=== PATIENT | male | born 1940 | race Hispanic/Latino ===

== ENCOUNTER → 2018-12-26 | Outpatient (CLI) | payer MEDICARE ==
[~2018-12-26] MED LIST: ALBU18HF7 IH; APIX5TAB PO; ASCO500T9 PO; ASPI-1005 PO; ATOR20TA65 PO; BENA10TA10 PO; CHOL500051 PO; CLOP75TA14 PO; CYCL5TAB PO; FAMO20TA8 PO; FERR324T4 PO; FLUT1AER IH; GLIP1TAB5 PO; PREG25 PO; TAMS-1 PO
== END | disposition home or self-care (01) ==
LOC: SHCH 07:46
PROVIDERS: ATTEND Internal Medicine Cardiovascular Disease
DX: I71.2 Thoracic aortic aneurysm, without rupture (principal)
CPT/HCPCS: 93978

== ENCOUNTER 2019-05-24 16:21 | Emergency (ER) | payer MEDICARE ==
[2019-05-24 17:46] LABS: BASOPHILS % (AUTO) 0.3 % (0.0-5.0); EOSINOPHILS % (AUTO) 3.8 % (0.0-8.0); HEMATOCRIT 36.4 % (42-54); LYMPHOCYTES % (AUTO) 15.2 % (21.0-51.0); MEAN CORPUSCULAR HEMOGLOBIN 32.2 pg (27.0-33.0); MEAN CORPUSCULAR HGB CONC 34.6 g/dL (32.0-36.0); NEUTROPHILS % (AUTO) 74.7 % (40.0-77.0); PLATELET COUNT (AUTO) 230 K/uL (130-400); RED BLOOD CELL COUNT(AUTO) 3.91 MIL/uL (4.50-6.20); RED CELL DISTRIBUTION WIDTH 13.9 % (11.0-15.5); WHITE BLOOD COUNT (AUTO) 9.3 K/uL (4.8-10.8)
[2019-05-24 17:49] LABS: CREATININE 1.6 mg/dL (0.5-1.5)
== END 2019-05-24 18:43 | disposition home or self-care (01) ==
LOC: EDH 16:21
DX: I25.10 Atherosclerotic heart disease of native coronary artery without angina pectoris (principal); I10 Essential (primary) hypertension; E11.9 Type 2 diabetes mellitus without complications; E78.5 Hyperlipidemia, unspecified; Z85.038 Personal history of other malignant neoplasm of large intestine; Z72.0 Tobacco use; Z98.890 Other specified postprocedural states
CPT/HCPCS: 36415; 80048; 84484; 85025; 93005

== ENCOUNTER → 2019-05-24 | Outpatient (CLI) | payer OTHER ==
[~2019-05-24] MED LIST changes: -BENA10TA10 PO; +BENA10TA12 PO
== END | disposition home or self-care (01) ==
LOC: RAH 12:21
PROVIDERS: ATTEND Internal Medicine Cardiovascular Disease
DX: Z13.6 Encounter for screening for cardiovascular disorders (principal)
CPT/HCPCS: 75571

== ENCOUNTER → 2019-06-19 | Outpatient (CLI) | payer MEDICARE ==
[~2019-06-19] VITALS: Ht 157.5 cm; Wt 89.8 kg
[~2019-06-19] MED LIST changes: +REGADENOSON 0.4 MG/5 ML PF SYG IVP SCH
== END | disposition home or self-care (01) ==
LOC: SHCH 08:37
PROVIDERS: ATTEND Internal Medicine Cardiovascular Disease
DX: I10 Essential (primary) hypertension (principal); I25.10 Atherosclerotic heart disease of native coronary artery without angina pectoris
CPT/HCPCS: 78452; 93017; 96374; A9500 ×2; J2785

== ENCOUNTER 2019-10-26 16:58 | Emergency (ER) | payer MEDICARE ==
[~2019-10-26 16:58] MED LIST changes: -BENA10TA12 PO; +BENA10TA77 PO; -REGADENOSON 0.4 MG/5 ML PF SYG IVP SCH
[2019-10-26] MEDS ORDERED: ACETAMINOPHEN 325 MG TAB ONE (18:02)
[2019-10-26] MEDS ORDERED: KETOROLAC TROMETHAMINE 30MG/ML ONE (19:09)
== END 2019-10-26 19:13 | disposition home or self-care (01) ==
LOC: EDH 16:58
DX: M79.604 Pain in right leg (principal); E11.9 Type 2 diabetes mellitus without complications; I10 Essential (primary) hypertension; E78.5 Hyperlipidemia, unspecified
CPT/HCPCS: 93971; 96372; 99284; J1885

== ENCOUNTER → 2020-04-30 | Outpatient (CLI) | payer MEDICARE ==
[~2020-04-30] MED LIST changes: +ASCO500T20 PO; -ASCO500T9 PO
== END | disposition home or self-care (01) ==
LOC: SHCH 10:20
PROVIDERS: ATTEND Internal Medicine Cardiovascular Disease
DX: I73.9 Peripheral vascular disease, unspecified (principal)
CPT/HCPCS: 93925

== ENCOUNTER 2021-04-11 12:47 | Emergency (ER) | payer MEDICARE ==
[~2021-04-11] VITALS: Ht 162.6 cm; Wt 129.7 kg
[2021-04-11 13:11] VITALS: BP 136/55
[2021-04-11 13:45] LABS: BASOPHILS % (AUTO) 0.5 % (0.0-5.0); EOSINOPHILS % (AUTO) 3.1 % (0.0-8.0); HEMATOCRIT 39.4 % (42-54); LYMPHOCYTES % (AUTO) 15.7 % (21.0-51.0); MEAN CORPUSCULAR HEMOGLOBIN 30.8 pg (27.0-33.0); MEAN CORPUSCULAR HGB CONC 33.2 g/dL (32.0-36.0); MEAN CORPUSCULAR VOLUME 92.5 fL (79-99); MONOCYTES % (AUTO) 7.2 % (3.0-13.0); NEUTROPHILS % (AUTO) 72.7 % (40.0-77.0); PLATELET COUNT (AUTO) 206 K/uL (130-400); RED BLOOD CELL COUNT(AUTO) 4.26 MIL/uL (4.50-6.20); RED CELL DISTRIBUTION WIDTH 13.1 % (11.0-15.5); WHITE BLOOD COUNT (AUTO) 8.5 K/uL (4.8-10.8)
[2021-04-11 15:25] LABS: ALANINE AMINOTRANSFERASE 25 U/L (12-78); ALBUMIN 3.8 g/dL (3.5-5.0); ASPARTATE AMINOTRANSFERASE 23 U/L (10-37); BILIRUBIN,TOTAL 0.6 mg/dL (0.2-1.0); CARBON DIOXIDE 29 mmol/L (21-32); CHLORIDE 103 mmol/L (101-111); CREATINE KINASE, TOTAL 35 U/L (21-232); CREATININE 1.7 mg/dL (0.5-1.5); GLOMERULAR FILTR. RATE CALC 42 mL/min (>60); GLUCOSE,RANDOM 156 mg/dL (70-105); MYOGLOBIN 57 ng/mL (10-92); POTASSIUM 5.8 mmol/L (3.5-5.1); SODIUM SERUM 138 mmol/L (136-145); TOTAL PROTEIN, SERUM 6.9 g/dL (6.0-8.3); TROPONIN I < 0.04 ng/mL (0.00-0.06); UREA NITROGEN, BLOOD 17 mg/dL (7-18)
[2021-04-11] MEDS ORDERED: CEFTRIAXONE 1G VIAL IM ONE (16:30)
[2021-04-11] MEDS ORDERED: CLIN300C10 PO (16:33)
[2021-04-11] MEDS ORDERED: NAPR-1180 PO (16:33)
[2021-04-11] MEDS ORDERED: CEFTRIAXONE 1G VIAL IVP ONE (17:00)
[2021-04-11 17:18] VITALS: BP 135/74
== END 2021-04-11 17:18 | disposition home or self-care (01) ==
LOC: EDH 12:47
DX: M43.6 Torticollis (principal); H70.90 Unspecified mastoiditis, unspecified ear; R42 Dizziness and giddiness; E11.9 Type 2 diabetes mellitus without complications; E78.00 Pure hypercholesterolemia, unspecified; I10 Essential (primary) hypertension; Z79.01 Long term (current) use of anticoagulants; Z79.1 Long term (current) use of non-steroidal anti-inflammatories (NSAID); Z79.51 Long term (current) use of inhaled steroids; Z79.82 Long term (current) use of aspirin; Z79.84 Long term (current) use of oral hypoglycemic drugs; Z79.899 Other long term (current) drug therapy; Z86.73 Personal history of transient ischemic attack (TIA), and cerebral infarction without residual deficits
CPT/HCPCS: 36415; 70450; 80053; 82550; 83874; 84484; 85025; 85651; 93005; 99285; J0696

== ENCOUNTER 2023-05-25 20:28 | Emergency (ER) | payer MEDICARE ==
[~2023-05-25 20:28] MED LIST changes: -ALBU18HF7 IH; -APIX5TAB PO; -ASCO500T20 PO; -ASPI-1005 PO; -ATOR20TA65 PO; +ATOR40TA71 PO; -CHOL500051 PO; -CLOP75TA14 PO; -CYCL5TAB PO; -FAMO20TA8 PO; -FERR324T4 PO; -FLUT1AER IH; +FOLI1TAB85 PO; +GLIM4TAB36 PO; -GLIP1TAB5 PO; +ICOS1CAP PO; -PREG25 PO; +RIVA2.5T PO; +SITA50TA PO
== END 2023-05-25 21:43 | disposition left against medical advice (07) ==
LOC: EDH 20:28
DX: T78.40XA Allergy, unspecified, initial encounter (principal); Z53.21 Procedure and treatment not carried out due to patient leaving prior to being seen by health care provider

== ENCOUNTER → 2024-01-03 | Outpatient (CLI) | payer MEDICARE | END | disposition home or self-care (01) | LOC: SHCH 08:17 | PROVIDERS: ATTEND Internal Medicine Cardiovascular Disease | DX: I70.213 Atherosclerosis of native arteries of extremities with intermittent claudication, bilateral legs (principal); R22.41 Localized swelling, mass and lump, right lower limb; I10 Essential (primary) hypertension; E78.5 Hyperlipidemia, unspecified; I25.10 Atherosclerotic heart disease of native coronary artery without angina pectoris; Z79.899 Other long term (current) drug therapy; Z86.73 Personal history of transient ischemic attack (TIA), and cerebral infarction without residual deficits | CPT/HCPCS: 93970 ==

== ENCOUNTER → 2024-02-17 | Outpatient (CLI) | payer MEDICARE ==
[2024-02-17 15:41] LABS: ALBUMIN 3.9 g/dL (3.5-5.0); BILIRUBIN,TOTAL 0.6 mg/dL (0.2-1.0); CREATININE 2.2 mg/dL (0.5-1.3); MAGNESIUM 1.6 mg/dL (1.80-2.40); POTASSIUM 4.2 mmol/L (3.5-5.1); TOTAL PROTEIN, SERUM 7.1 g/dL (6.0-8.3)
== END | disposition home or self-care (01) ==
LOC: LAB 13:10
PROVIDERS: ATTEND Internal Medicine Cardiovascular Disease
DX: I10 Essential (primary) hypertension (principal)
CPT/HCPCS: 36415; 80053; 83735

== ENCOUNTER → 2024-03-23 | Outpatient (CLI) | payer MEDICARE | END | disposition home or self-care (01) | LOC: SHCH 13:06 | PROVIDERS: ATTEND Internal Medicine Cardiovascular Disease | DX: I08.1 Rheumatic disorders of both mitral and tricuspid valves (principal); R06.9 Unspecified abnormalities of breathing | CPT/HCPCS: 93306 ==

== ENCOUNTER 2024-04-06 05:58 | Day surgery (SDC) | payer MEDICARE ==
[2024-04-03 12:20] LABS: BASOPHILS # (AUTO) 0.03 K/uL (0.00-0.20); BASOPHILS % (AUTO) 0.4 % (0.0-5.0); EOSINOPHILS # (AUTO) 0.21 K/uL (0.00-0.70); EOSINOPHILS % (AUTO) 2.5 % (0.0-8.0); HEMATOCRIT 37.5 % (42-54); IMMATURE GRANULOCYTE ABSOLUTE 0.06 K/uL (0-1); LYMPHOCYTES # (AUTO) 1.2 K/uL (1.0-4.8); LYMPHOCYTES % (AUTO) 14.3 % (21.0-51.0); MEAN CORPUSCULAR HEMOGLOBIN 31.6 pg (27.0-33.0); MEAN CORPUSCULAR HGB CONC 33.9 g/dL (32.0-36.0); MEAN CORPUSCULAR VOLUME 93.3 fL (79-99); MONOCYTES # (AUTO) 0.6 K/uL (0.1-1.0); MONOCYTES % (AUTO) 7.5 % (3.0-13.0); NEUTROPHILS # (AUTO) 6.3 K/uL (1.8-7.7); NEUTROPHILS % (AUTO) 74.6 % (40.0-77.0); PLATELET COUNT (AUTO) 171 K/uL (130-400); RED BLOOD CELL COUNT(AUTO) 4.02 MIL/uL (4.50-6.20); RED CELL DISTRIBUTION WIDTH 12.9 % (11.0-15.5); WHITE BLOOD COUNT (AUTO) 8.4 K/uL (4.8-10.8)
[2024-04-03 12:31] LABS: CREATININE 1.8 mg/dL (0.5-1.3); POTASSIUM 5.6 mmol/L (3.5-5.1)
[2024-04-03 12:33] LABS: INR 1.17 (0.85-1.15); PROTHROMBIN TIME 12.5 SEC (9.6-11.6)
[2024-04-03 12:34] LABS: PARTIAL THROMBOPLASTIN TIME 32.8 SEC (26.3-35.5)
[2024-04-03 12:40] VITALS: BP 163/78; PULSE 77; RESP 19
[~2024-04-06] VITALS: Ht 160 cm; Wt 93.2 kg
[2024-04-06] VITALS (14 sets, daily range): BP systolic 102–184; BP diastolic 52–80; PULSE 60–77; RESP 16–18
[2024-04-06 06:36] LABS: CREATININE 1.7 mg/dL (0.5-1.3); POTASSIUM 5.7 mmol/L (3.5-5.1)
[2024-04-06] MEDS: 0.9%NACL 1000ML 1,000 ML IV ONE (07:07)
[2024-04-06] MEDS ORDERED: LIDOCAINE HCL 400MG/20ML VIAL ONE (07:14)
[2024-04-06] MEDS ORDERED: IODIXANOL 320 MG/ML 100 ML VIAL ONE (07:15)
[2024-04-06] MEDS ORDERED: HEPARIN 10,000 UNIT/10ML (1,000 UNIT/ML) VIAL ONE (07:15)
[2024-04-06] MEDS ORDERED: NITROGLYCERIN 50MG VIAL ONE (07:15)
[2024-04-06] MEDS ORDERED: FENTANYL CITRATE PF 50 MCG/1 ML 2ML VIAL ONE (07:30)
[2024-04-06] MEDS ORDERED: MIDAZOLAM HCL 1 MG/ML 2ML VIAL ONE (07:30)
[2024-04-06] MEDS ORDERED: CLOPIDOGREL 300MG TAB ONE (09:12)
[2024-04-06] MEDS ORDERED: HYDRALAZINE 20MG/ML VIAL IV PRN (09:30)
[2024-04-06] MEDS ORDERED: 0.9%NACL 1000ML 1,000 ML IV SCH (09:30)
[2024-04-06] MEDS ORDERED: GLUCAGON 1MG KIT 1 MG ML IM PRN (09:30)
[2024-04-06] MEDS ORDERED: DEXTROSE 50%-WATER 50 ML DISP.SYRIN IV PRN (09:30)
[2024-04-06] MEDS ORDERED: METOPROLOL TARTRATE 1 MG/ML 5ML VIAL IV PRN (09:30)
[2024-04-06] MEDS ORDERED: ATROPINE 1MG SYG IVP ONE (11:00)
[2024-04-06] MEDS ORDERED: INSULIN HUMULIN R 100 UNIT/ML 3ML SQ SCH (11:30)
[2024-04-06] MEDS: NITROGLYCERIN 0.4 MG SL TAB SL PRN (11:52)
[2024-04-07] MEDS ORDERED: ASPIRIN 81MG CHEW TAB PO SCH (09:00)
== END 2024-04-06 14:00 | disposition short-term general hospital (02) ==
LOC: DAH 05:58
PROVIDERS: ATTEND Internal Medicine Cardiovascular Disease
DX: E11.51 Type 2 diabetes mellitus with diabetic peripheral angiopathy without gangrene (principal); I70.203 Unspecified atherosclerosis of native arteries of extremities, bilateral legs; Z79.01 Long term (current) use of anticoagulants; I10 Essential (primary) hypertension; E78.5 Hyperlipidemia, unspecified; I25.10 Atherosclerotic heart disease of native coronary artery without angina pectoris; Z87.2 Personal history of diseases of the skin and subcutaneous tissue; Z86.73 Personal history of transient ischemic attack (TIA), and cerebral infarction without residual deficits; Z79.4 Long term (current) use of insulin; Z79.899 Other long term (current) drug therapy
CPT/HCPCS: 80048 ×2; 85025; 85610; 85730; 36415 ×2; 93005; 75625; 75716; 75774; 82948 ×2; C9764; C1887; C1725; C1769 ×4; C1894 ×2; C1893; C2623; J3010; J3490 ×2; J7030; J1644 ×2; J2250; Q9967; A4215; A4222; A4221; A4663; A4216; A4606; A4223 ×3; 99156; 99157; J0461

== ENCOUNTER → 2024-04-10 | Outpatient (CLI) | payer MEDICARE | END | disposition home or self-care (01) | LOC: SHCH 14:58 | PROVIDERS: ATTEND Internal Medicine Cardiovascular Disease | DX: I87.2 Venous insufficiency (chronic) (peripheral) (principal); I87.1 Compression of vein | CPT/HCPCS: 93970 ==

== ENCOUNTER → 2024-04-16 | Outpatient (CLI) | payer MEDICARE ==
[2024-04-16 12:15] LABS: CREATININE 2.4 mg/dL (0.5-1.3); POTASSIUM 4.9 mmol/L (3.5-5.1)
== END | disposition home or self-care (01) ==
LOC: LAB 09:32
PROVIDERS: ATTEND Internal Medicine Cardiovascular Disease
DX: I10 Essential (primary) hypertension (principal)
CPT/HCPCS: 36415; 80048

== ENCOUNTER → 2024-05-01 | Outpatient (CLI) | payer MEDICARE ==
[2024-05-01 12:19] LABS: CREATININE 2.8 mg/dL (0.5-1.3); POTASSIUM 5.4 mmol/L (3.5-5.1)
== END | disposition home or self-care (01) ==
LOC: LAB 10:38
PROVIDERS: ATTEND Internal Medicine Cardiovascular Disease
DX: I10 Essential (primary) hypertension (principal)
CPT/HCPCS: 36415; 80048

== ENCOUNTER → 2024-08-21 | Outpatient (CLI) | payer MEDICARE ==
--- NOTE | 2024-08-22 07:06 | HMCSR ---
APPROVED REPORT Laterality: Bilateral Surgery/Intervention Angioplasty : Date : 2018 Site : RCFA/RATA/R PER PTCA : Date : 03/2024 Site : R POP VELOCITY AND DOPPLER WAVEFORM ANALYSIS MEDICAL OFFICE TECHNOLOGIST (R) 215.3cm/sec, Biphasic, MEDICAL OFFICE TECHNOLOGIST (L) 96.6cm/sec, Biphasic, Prof Fem Art. (R) 145.9cm/sec, Biphasic, Prof Fem Art. (L) 68.3cm/sec, Biphasic, Fem Art Prox. (R) 181.8cm/sec, Biphasic, Fem Art Prox. (L) 97.2cm/sec, Biphasic, Fem Art Mid. (R) 76.7cm/sec, Biphasic, Fem Art Mid. (L) 98.4cm/sec, Biphasic, Fem Art Dist (R) 57.9cm/sec, Biphasic, Fem Art Dist. (L) 31.3cm/sec, Monophasic,pre-occlusive Pop Art(AK) (R) 248.7cm/sec, Biphasic, Pop Art (AK) (L) 26.6cm/sec, Monophasic,pre-occlusive Pop Art (Fossa)(R) 228.2cm/sec, Biphasic, Pop Art (Fossa) (L) 25.5cm/sec, Monophasic,pre-occlusi ve Pop Art(BK) (R) 62.0cm/sec, Biphasic, Pop Art (BK) (L) 20.8cm/sec, Monophasic,pre-occlusive Oniel ateral nearby GOLF CADDY Prox. (R) 15.5cm/sec, Trickle Monophasic, GOLF CADDY Prox. (L) cm/sec, Occluded, GOLF CADDY Mid. (R) 31.8cm/sec, Trickle Monophasic, GOLF CADDY Mid. (L) cm/sec, Occluded, GOLF CADDY Dist. (R) cm/sec, Occluded, GOLF CADDY Dist. (L) cm/sec, Occluded, Per Art Dist. (R) 29.4cm/sec, Trickle Monophasic, Per Art Dist. (L) cm/sec, Occluded, JENNIFER Prox. (R) 76.3cm/sec, Biphasic, JENNIFER Prox. (L) 57.5cm/sec, Monophasic, JENNIFER Mid. (R) 68.2cm/sec, Biphasic JENNIFER Mid. (L) 63.8cm/sec, Monophasic, JENNIFER Dist. (R) 58.3cm/sec, Biphasic, JENNIFER Dist. (L) 53.5cm/sec, Monophasic, Technologist Impression Diffuse atherosclerosis throughout the bilateral lower extremities. The right posterior tibial artery appears occluded distally. The left popliteal artery appears occluded with collateralized flow noted. The left posterior tibial artery and left peroneal artery appears occluded. Conclusion The right posterior tibial artery appears occluded distally. The left popliteal artery appears occluded with collateralized flow noted. The left posterior tibial artery and left peroneal artery appears occluded. Conclusion The right posterior tibial artery appears occluded distally. The left popliteal artery appears occluded with collateralized flow noted. The left posterior tibial artery and left peroneal artery appears occluded.
== END | disposition home or self-care (01) ==
LOC: SHCH 10:10
PROVIDERS: ATTEND Internal Medicine Cardiovascular Disease
DX: I70.293 Other atherosclerosis of native arteries of extremities, bilateral legs (principal)
CPT/HCPCS: 93925

== ENCOUNTER 2024-12-05 21:19 | Emergency (ER) | payer MEDICARE ==
[~2024-12-05] VITALS: Ht 167.6 cm; Wt 86.2 kg
--- NOTE | 2024-12-05 21:45 | ERN ---
ED Note History of Present Illness Stated Complaint: ABDOMINAL PAIN Chief Complaint: Abdominal Pain Time Seen by MD: 21:40 Time Seen by Midlevel: 21:43 Dictation: Mr. Casey is an 84-year-old gentleman with history of colon cancer/resection, COPD, hypertension, CVA/right sided residual weakness, BPH, and CKD who presented to the emergency department this evening for evaluation of abdominal pain. He reports to three days of fatigue, general weakness, left-sided abdominal pain, cough, and shortness of breath. He states he continues to smoke one cigarette daily; former heavy smoker. He states he went to go see Dr. Santacruz today and was told to come to the hospital in the evening when it was in his busy. He denies having fever, chills, sore throat, congestion, chest pain, palpitations, edema, nausea, vomiting, hematemesis, constipation, diarrhea, melena, hematochezia, headache, or dizziness. Oncologist: Dr. Javier Santacruz Manager Of Broadcast Content: Dr. Magen Arguello Allergies: Coded Allergies: No Known Allergies (Unverified Allergy, Unknown, 10/26/19) No Known Drug Allergies (Unverified Allergy, Unknown, 10/26/19) Home Meds Active Scripts Polyethylene Glycol 3350 (Miralax) 17 Gram Powd.pack, 17 GM PO DAILY for 7 Days, #7 PACK 0 Refills Prov:ARELIS CAMPO NP 12/06/24 Ondansetron (Ondansetron Odt) 4 Mg Tab.rapdis, 4 MG PO Q6HPRN PRN for nausea, #15 TAB 0 Refills Prov:ARELIS CAMPO NP 12/06/24 Reported Medications Benazepril HCl (Benazepril HCl) 10 Mg Tablet, 10 MG PO BID, TAB 01/28/23 Icosapent Ethyl (Vascepa) 1 Gram Capsule, 2 GM PO BID, CAP 01/28/23 Sitagliptin Phosphate (Januvia) 50 Mg Tablet, 50 MG PO DAILY, TAB 01/28/23 Vit B Cmplx 3/FA/Vit C/Biotin ([place] [facility] Tablet) 1 Each Tablet, 1 EACH PO JAMES LY, TAB 01/28/23 Tamsulosin HCl (Flomax) 0.4 Mg Cap.er.24h, 0.4 MG PO DAILY, CAPSULE. 01/28/23 Rivaroxaban (Xarelto) 2.5 Mg Tablet, 2.5 MG PO BID, TAB 01/28/23 Glimepiride (Glimepiride) 4 Mg Tablet, 4 MG PO BID PRN for BLOOD GLUCOSE >150, TAB 01/28/23 Atorvastatin Calcium (Atorvastatin Calcium) 40 Mg Tablet, 40 MG PO HS, TAB 01/28/23 Past Medical History Past Medical History: COPD, CVA (with right sided residual weakness), Diabetes- Type II, Hypertension Additional Past Medical Hx: COLON CA, CKD Surgical History: Other Surgical History Other: HERNIA REPAIR, bowel resection Social History: Smokers (former), Negative, Lives with family RN Note Reviewed/Agreed w/PFSH: Yes Review of System Dictation REVIEW OF SYSTEMS: CONSTITUTIONAL: Patient denies fevers, chills, sweats and weight changes. Reports fatigue, and general weakness EYES: Patient denies any visual symptoms. EARS, NOSE, AND THROAT: No difficulties with hearing. No symptoms of rhinitis or sore throat. CARDIOVASCULAR: Patient denies chest pains, palpitations, orthopnea and paroxysmal nocturnal dyspnea. RESPIRATORY: Reports shortness of breath with activity and nonproductive cough. States he continues to smoke one cigarette per day. GI: No nausea, vomiting, diarrhea, constipation, hematochezia or melena. Reports abdominal distention and abdominal pain (worse on left) : No urinary hesitancy or dribbling. No nocturia or urinary frequency. No abnormal urethral discharge. MUSCULOSKELETAL: No myalgias or arthralgias. NEUROLOGIC: No chronic headaches, no seizures. Patient denies numbness, tingling or weakness. History previous stroke with right-sided residual weakness. PSYCHIATRIC: Patient denies problems with mood disturbance. No problems with anxiety. ENDOCRINE: No excessive urination or excessive thirst. DERMATOLOGIC: Patient denies any rashes or skin changes. Initial Vital Sign VS Vital Signs Date Time Temp Pulse Resp B/P (MAP) Pulse Ox O2 Delivery O2 Flow Rate FiO2 12/05/24 21:23 97.7 60 20 164/66 97 Room Air 0 Physical Exam Dictation Vital signs: Reviewed. Afebrile Constitutional: No acute distress. Non-toxic appearing. Head/Face: Normocephalic, atraumatic. Eyes: Periorbital areas with no swelling, redness, or edema. Lids and lashes are normal. Conjunctival injection is absent. Sclera anicteric. Pupils equal, round, reactive to light. ENT: Pinnas intact and no signs of trauma or erythema. Ear canals clear and no discharge. TMs no erythema. No nasal discharge or bleeding noted. Oropharynx with no exudate, redness, swelling, masses, exudates, or evidence of obstruction. Uvula midline. Mucous membranes moist. Neck: Trachea midline, no masses palpated, and no cervical lymphadenopathy. No swelling. Supple, full range of motion. Chest/Axilla: No tenderness, no crepitus, no paradoxical movement, no retractions. Cardiovascular: Regular rate, regular rhythm, no murmur, no gallops. Symmetric pulses. No peripheral edema. Respiratory: Tachypneic; RR 22. Lung sounds diminished with expiratory wheezes. Room air SpO2 92% Gastrointestinal: Inspection obese/soft/distended. Bowel sounds are normal. No mass or organomegaly . There is tenderness diffusely worse on left No rebound. No rigidity. No voluntary or involuntary guarding. No Haile's sign. Neurological: Normal speech, gross motor function intact, gross sensory function intact. No focal weakness/Paresthesia. Musculoskeletal/Extremities: All extremities have full range of motion, no pain or tenderness on palpation. Symmetric pulses. Integumentary: Intact. Skin is normal color, warm and dry. Cap refill less than 3 seconds. Results (Laboratory/Radiology) Laboratory/Radiology Laboratory Tests Test 12/05/24 21:59 12/06/24 00:42 White Blood Count 9.2 K/uL (4.8-10.8) Red Blood Count 3.92 MIL/uL (4.50-6.20) L Hemoglobin 12.2 g/dL (14.0-18.0) L Hematocrit 37.4 % (42-54) L Mean Corpuscular Volume 95.4 fL (79-99) Mean Corpuscular Hemoglobin 31.1 pg (27.0-33.0) Mean Corpuscular Hemoglobin Concent 32.6 g/dL (32.0-36.0) Red Cell Distribution Width 13.2 % (11.0-15.5) Platelet Count 202 K/uL (130-400) Mean Platelet Volume 9.3 fL (7.5-10.5) Immature Granulocyte % (Auto) 0.7 % (0-1) Neutrophils (%) (Auto) 67.1 % (40.0-77.0) Lymphocytes (%) (Auto) 18.3 % (21.0-51.0) L Monocytes (%) (Auto) 8.5 % (3.0-13.0) Eosinophils (%) (Auto) 5.1 % (0.0-8.0) Basophils (%) (Auto) 0.3 % (0.0-5.0) Neutrophils # (Auto) 6.2 K/uL (1.8-7.7) Lymphocytes # (Auto) 1.7 K/uL (1.0-4.8) Monocytes # (Auto) 0.8 K/uL (0.1-1.0) Eosinophils # (Auto) 0.47 K/uL (0.00-0.70) Basophils # (Auto) 0.03 K/uL (0.00-0.20) Absolute Immature Granulocyte (auto 0.06 K/uL (0-1) Nucleated Red Blood Cells 0.0 % (0.0-0.19) Sodium Level 131 mmol/L (136-145) L Potassium Level 5.6 mmol/L (3.5-5.1) H Chloride Level 100 mmol/L (101-111) L Carbon Dioxide Level 27 mmol/L (21-32) Blood Urea Nitrogen 27 mg/dL (7-18) H Creatinine 1.5 mg/dL (0.5-1.3) H Glomerular Filtration Rate Calc 46 mL/min (>90) Random Glucose 112 mg/dL (70-105) H Total Calcium 9.2 mg/dL (8.5-10.1) Total Bilirubin 0.4 mg/dL (0.2-1.0) Direct Bilirubin 0.1 mg/dL (0.0-0.3) Aspartate Amino Transf (AST/SGOT) 19 U/L (10-37) Alanine Aminotransferase (ALT/SGPT) 24 U/L (12-78) Alkaline Phosphatase 79 U/L (50-136) Troponin I High Sensitivity 9 ng/L (4-75) Total Protein 6.7 g/dL (6.0-8.3) Albumin 3.7 g/dL (3.5-5.0) Urine Color LIGHT-YELLOW (YELLOW) Urine Appearance CLEAR (CLEAR) Urine pH 5.0 (5.0-8.0) Urine Specific [place] 1.012 (1.001-1.031) Urine Protein NEGATIVE mg/dL (NEGATIVE) Urine Glucose (UA) NEGATIVE mg/dL (NEGATIVE) Urine Ketones NEGATIVE mg/dL (NEGATIVE) Urine Occult Blood NEGATIVE (NEGATIVE) Urine Nitrate NEGATIVE (NEGATIVE) Urine Bilirubin NEGATIVE mg/dL (NEGATIVE) Urine Urobilinogen 0.2 mg/dL (0.2-1.0) Urine Leukocyte Esterase NEGATIVE Lulu/uL Labs Reviewed?: Yes EKG Comment: EKG Interpretation: Time Reviewed: 2201 Ventricular rate: 59 bpm MN Interval: 211 ms QRS duration: 136 ms Clinical impression: Sinus rhythm with right bundle-branch block EKG Reviewed and interpreted by Dr. Mary Gloria CT Scan Comment: PATIENT: DEBBIE CASEY MR#: [id number] : 1940 SEX: M AGE: 84 LOCATION: [facility] ORDER 45 STATUS: [facility] REPORT#: [id number] SERVICE 40 REASON: abdominal pain, hx ORDERING PHYSICIAN: ARELIS CAMPO NP PROCEDURE: ABD PEL WO - CT ABDOMEN/PELVIS W/O CONTRAST CT ABDOMEN/PELVIS W/O CONTRAST HISTORY: Abdominal pain COMPARISON: None TECHNIQUE: Multiple sequential axial images of the abdomen and pelvis were obtained from the dome of the diaphragm through symphysis pubis. Patient was not given contrast through intravenous route. Oral contrast was not given. FINDINGS: No pleural effusion is seen bilaterally. There is no evidence of parenchymal disease or pulmonary nodule of the visualized lower lungs. Degenerative changes of the thoracolumbar spine are present. The heart is not enlarged. Liver measures 14.4 cm. There is liver parenchymal disease. Bilateral renal cortical scarring is seen. No bowel obstruction is seen. There is spondylosis. The liver, spleen, adrenal glands and pancreas are unremarkable. There is no evidence of hydronephrosis bilaterally. No evidence of renal stone is seen. Fecal material is seen in the colon. There are normal size retroperitoneal and mesenteric lymph nodes. No ascites is seen. Atherosclerotic changes are present. There are small bilateral inguinal hernias with fat content. Pelvic sidewalls are symmetric bilaterally. Bladder is well distended without wall thickening. IMPRESSION: 1. No acute findings. CT was performed with one or more following dose reduction techniques: automated exposure control, adjustment of the mA and kv according to patient's size, or use of a iterative reconstruction technique. DICTATED BY: ARMINDA SHAH MD DATE: 12/05/242233 ELECTRONICALLY SIGNED BY: ARMINDA SHAH MD DATE: 12/05/242240 ED Course ED Course Orders Procedure Category Date Status Time Cbc With Differential LAB 12/05/24 Complete 21:41 Basic Metabolic Panel LAB 12/05/24 Complete 21:41 Hepatic Function Panel LAB 12/05/24 Complete 21:41 Urinalysis Profile LAB 12/05/24 Complete 21:41 Troponin I High LAB 12/05/24 Complete Sensitivity 21:41 12 Lead Ekg Tracing- EKG 12/05/24 Complete Technical 21:41 Chest 1vw RAD 12/05/24 Taken 21:41 Ct Abdomen/Pelvis W/O CT 12/05/24 Resulted Contrast 21:41 Influenza Type A & B, LAB 12/05/24 In Process Rapid 22:52 Covid Rna Naat LAB 12/05/24 In Process 22:52 0.9% Nacl 500ml PHA 12/05/24 Complete Iv.Soln (Ns 500ml 23:00 Sodium Polystyr Sulf PHA 12/06/24 Complete 15gm (Kayexalate 15 00:30 Current Medications Medications (Trade) Dose Ordered Sig/Esthela Route PRN Reason Start Time Stop Time Status Last Admin Dose Admin Sodium Polystyrene Sulfonate (kayEXALate 15 GM/60 ML) 15 gm ONCE ONCE PO 12/06/24 00:30 12/06/24 00:31 DC 12/06/24 01:23 Sodium Chloride 500 ml @ 0 mls/hr ONCE ONCE IV 12/05/24 23:00 12/05/24 23:01 DC 12/06/24 01:28 Vital Signs Date Time Temp Pulse Resp B/P (MAP) Pulse Ox O2 Delivery O2 Flow Rate FiO2 12/05/24 21:23 97.7 60 20 164/66 97 Room Air 0 Uneventful ED course. Vital signs stable; afebrile and normotensive with room air SpO2 97%, noncontrast CT scan of the abdomen and pelvis unremarkable; no acute findings. Laboratory findings as noted below. H and H are 12.2/37.4, Na/Cl 131/100, BUN/CR /1.5, glucose 112, and K5.6. Troponin is negative. Influenza a/B and COVID negative. While in the emergency department he received Kayexalate dose. ED nursing staff and the place IV for NS bolus. Patient had an elevated blood pressure reading and took his dose of hs antihypertensive per home supply. Findings were discussed with patient and son and all questions were answered. Patient is anxious for discharge to home. Family states they will follow up with Dr. Madison office and receive fluids there if needed. . Medical Decision Making MDM MDM: Differential diagnosis: Diverticulitis, bowel obstruction, constipation, viral illness Rationale: Tests considered and ordered secondary to shared decision making include: Lab, CT from a EKG Previous outside records reviewed: Old ER visits. Risk of complication and/or morbidity or mortality of patient management: None Medications-Per medication reconciliation Need for hospitalization: Patient does not meet criteria for hospitalization. Need for emergency major/minor surgery: No There are no social concerns with this patient. Prescription drug management: Zofran, MiraLax Prescriptions will include symptomatic care Patient's prior external medical records from other ER visits were reviewed by me as indicated. Prior testing and results from previous visits were reviewed. Prior tests were taken into account with medical decision making and resource utilization, independent historian/historians were used to obtain complete medical history. I independently interpreted the test that were performed, results were reviewed by me and considered findings on radiology if ordered. Medical management and examination interpretation discussions were had by me with other qualified healthcare professionals as indicated for the patient's care. DX & DISP Disposition: Discharge Departure Impression: Primary Impression: Abdominal pain Additional Impressions: Constipation, Hyperkalemia, Hx of chronic kidney disease, Hypertension, Dehydration, mild Condition: Stable Scripts Polyethylene Glycol 3350 (Miralax) 17 Gram Powd.pack 17 GM PO DAILY for 7 Days, #7 PACK 0 Refills Prov: ARELIS CAMPO POLITICAL CONSULTANT 12/06/24 Ondansetron (Ondansetron Odt) 4 Mg Tab.rapdis 4 MG PO Q6HPRN PRN for nausea, #15 TAB 0 Refills Prov: ARELIS CAMPO POLITICAL CONSULTANT 12/06/24 Additional Instructions: Increase fluid intake. Increase fiber in diet. Take MiraLax daily with full glass of water. May take Zofran ODT every 6 hours as needed for nausea. Keep a log of your blood pressure readings. Continue all home medications. Follow up with your PCP and/or Dr. Santacruz later this week Referrals: JAVIER SANTACRUZ MD (PCP) ARELIS CAMPO NP Dec 05, 2024 21:45
--- NOTE | 2024-12-05 22:06 | EKG ---
[facility] Test Date: 2024-12-05 Test Time: 22:02:46 Pat Name: DEBBIE CASEY Department: ED Room: Gender: Diesel Engine Specialist: [facility] : 1940 Requested By: ARELIS CAMPO Order Number: [id number] Reading MD: Christiano Rucker Measurements Intervals [place] Rate: 59 P: -25 IA: 211 QRS: -85 QRSD: 136 T: 65 QT: 417 QTc: 415 Interpretive Statements Sinus rhythm RBBB and LAFB Compared to ECG 04/03/2024 12:06:19 First degree AV block no longer present Electronically Signed On 12-06-2024 10:31:06 CDT by Christiano Rucker Please click the below link to view image of tracing.
[2024-12-05 22:08] LABS: BASOPHILS # (AUTO) 0.03 K/uL (0.00-0.20); BASOPHILS % (AUTO) 0.3 % (0.0-5.0); EOSINOPHILS # (AUTO) 0.47 K/uL (0.00-0.70); EOSINOPHILS % (AUTO) 5.1 % (0.0-8.0); HEMATOCRIT 37.4 % (42-54); IMMATURE GRANULOCYTE ABSOLUTE 0.06 K/uL (0-1); LYMPHOCYTES # (AUTO) 1.7 K/uL (1.0-4.8); LYMPHOCYTES % (AUTO) 18.3 % (21.0-51.0); MEAN CORPUSCULAR HEMOGLOBIN 31.1 pg (27.0-33.0); MEAN CORPUSCULAR HGB CONC 32.6 g/dL (32.0-36.0); MEAN CORPUSCULAR VOLUME 95.4 fL (79-99); MONOCYTES # (AUTO) 0.8 K/uL (0.1-1.0); MONOCYTES % (AUTO) 8.5 % (3.0-13.0); NEUTROPHILS # (AUTO) 6.2 K/uL (1.8-7.7); NEUTROPHILS % (AUTO) 67.1 % (40.0-77.0); PLATELET COUNT (AUTO) 202 K/uL (130-400); RED BLOOD CELL COUNT(AUTO) 3.92 MIL/uL (4.50-6.20); RED CELL DISTRIBUTION WIDTH 13.2 % (11.0-15.5); WHITE BLOOD COUNT (AUTO) 9.2 K/uL (4.8-10.8)
[2024-12-05 22:21] LABS: CREATININE 1.5 mg/dL (0.5-1.3); POTASSIUM 5.6 mmol/L (3.5-5.1)
[2024-12-05 22:28] LABS: ALBUMIN 3.7 g/dL (3.5-5.0); BILIRUBIN,DIRECT 0.1 mg/dL (0.0-0.3); BILIRUBIN,TOTAL 0.4 mg/dL (0.2-1.0); TOTAL PROTEIN, SERUM 6.7 g/dL (6.0-8.3)
--- NOTE | 2024-12-05 22:41 | HMCIMG ---
CT ABDOMEN/PELVIS W/O CONTRAST HISTORY: Abdominal pain COMPARISON: None TECHNIQUE: Multiple sequential axial images of the abdomen and pelvis were obtained from the dome of the diaphragm through symphysis pubis. Patient was not given contrast through intravenous route. Oral contrast was not given. FINDINGS: No pleural effusion is seen bilaterally. There is no evidence of parenchymal disease or pulmonary nodule of the visualized lower lungs. Degenerative changes of the thoracolumbar spine are present. The heart is not enlarged. Liver measures 14.4 cm. There is liver parenchymal disease. Bilateral renal cortical scarring is seen. No bowel obstruction is seen. There is spondylosis. The liver, spleen, adrenal glands and pancreas are unremarkable. There is no evidence of hydronephrosis bilaterally. No evidence of renal stone is seen. Fecal material is seen in the colon. There are normal size retroperitoneal and mesenteric lymph nodes. No ascites is seen. Atherosclerotic changes are present. There are small bilateral inguinal hernias with fat content. Pelvic sidewalls are symmetric bilaterally. Bladder is well distended without wall thickening. IMPRESSION: 1. No acute findings. CT was performed with one or more following dose reduction techniques: automated exposure control, adjustment of the mA and kv according to patient's size, or use of a iterative reconstruction technique.
[2024-12-06] MEDS ORDERED: ONDA-243 PO (00:24)
[2024-12-06] MEDS ORDERED: POLY17PO4 PO (00:24)
[2024-12-06 00:56] LABS: APPEARANCE,URINE CLEAR (CLEAR); BILIRUBIN,URINE NEGATIVE (NEGATIVE); COLOR,URINE LIGHT-YELLOW (YELLOW); GLUCOSE, URINE (UA) NEGATIVE (NEGATIVE); KETONES,URINE NEGATIVE (NEGATIVE); LEUKOCYTE ESTERASE ,URINE NEGATIVE Leu/uL (NEGATIVE); NITRATE,URINE NEGATIVE (NEGATIVE); OCCULT BLOOD,URINE NEGATIVE (NEGATIVE); PROTEIN,URINE NEGATIVE (NEGATIVE); UROBILINOGEN,URINE 0.2 mg/dL (0.2-1.0)
[2024-12-06 01:13] LABS: ADD UA MICROSCOPIC NO
[2024-12-06] MEDS: kayEXALate 15GM/60ML PO ONE (01:23)
[2024-12-06] MEDS: 0.9% NACL 500ML IV.SOLN 500 ML IV ONE (01:28)
[2024-12-06 02:05] LABS: SARS-CoV-2, RNA, NAAT NEGATIVE SARS CoV-2 (NEGATIVE)
[2024-12-06 02:09] LABS: INFLUENZA TYPE A Negative For Type A (NEGATIVE); INFLUENZA TYPE B Negative For Type B (NEGATIVE)
[2024-12-06 02:17] VITALS: BP 161/88; PULSE 72; RESP 14; TEMP 97.7; O2SAT 98
--- NOTE | 2024-12-06 10:39 | HMCIMG ---
Exam Type: CHEST 1VW Clinical Information: shortness of breath Comparison: None Findings: The lungs are clear of infiltrates. The heart is normal in size. The bony and soft tissue structures of the chest are unremarkable. Impression: Clear lungs.
== END 2024-12-06 02:21 | disposition home or self-care (01) ==
LOC: EDH 21:19
DX: I12.9 Hypertensive chronic kidney disease with stage 1 through stage 4 chronic kidney disease, or unspecified chronic kidney disease (principal); E11.22 Type 2 diabetes mellitus with diabetic chronic kidney disease; N18.9 Chronic kidney disease, unspecified; R10.9 Unspecified abdominal pain; K59.00 Constipation, unspecified; E87.5 Hyperkalemia; J44.9 Chronic obstructive pulmonary disease, unspecified; F17.200 Nicotine dependence, unspecified, uncomplicated; Z79.01 Long term (current) use of anticoagulants; Z79.84 Long term (current) use of oral hypoglycemic drugs; Z85.038 Personal history of other malignant neoplasm of large intestine; Z86.73 Personal history of transient ischemic attack (TIA), and cerebral infarction without residual deficits; Z98.890 Other specified postprocedural states; Z20.822 Contact with and (suspected) exposure to COVID-19
CPT/HCPCS: 36415; 71045; 74176; 80048; 80076; 81003; 84484; 85025; 87635; 87804; 93005; 99285

== ENCOUNTER 2025-09-17 20:48 | Emergency (ER) | payer MEDICARE ==
[~2025-09-17] VITALS: Ht 162.6 cm; Wt 80.7 kg
[~2025-09-17 20:48] MED LIST changes: +ONDA-243 PO; +POLY17PO4 PO; -TAMS-1 PO; +TAMS-55 PO
--- NOTE | 2025-09-17 21:03 | ERN ---
ED Note History of Present Illness Stated Complaint: C/O BACK PAIN Chief Complaint: Back Pain-No Injury Time Seen by MD: 20:55 Dictation: PATIENT IS A 85-YEAR-OLD MALE COMING IN TODAY WITH COMPLAINTS OF LEFT FLANK PAIN THAT RADIATES TO LEFT LOWER QUADRANT FOR THE LAST SEVERAL DAYS. HE STATES HE HAS HAD THE SAME PAIN IN THE PAST AND WAS WORKED UP BY HIS DOCTOR, DR. SANTACRUZ WITHOUT RESULTS. HE DENIES FEVER CHILLS NAUSEA VOMITING. HE STATES THE PAIN DOES WAKE HIM UP AT NIGHT IN HIS [place] Allergies: Coded Allergies: No Known Allergies (Unverified Allergy, Unknown, 10/26/19) No Known Drug Allergies (Unverified Allergy, Unknown, 10/26/19) Home Meds Active Scripts Polyethylene Glycol 3350 (Miralax) 17 Gram Powd.pack, 17 GM PO DAILY for 7 Days, #7 PACK 0 Refills Prov:RADHAARELIS MARIE Soni [facility] 12/06/24 Ondansetron (Ondansetron Odt) 4 Mg Tab.rapdis, 4 MG PO Q6HPRN PRN for nausea, #15 TAB 0 Refills Prov:ARELIS CAMPO Soni [facility] 12/06/24 Reported Medications Benazepril HCl (Benazepril HCl) 10 Mg Tablet, 10 MG PO BID, TAB 01/28/23 Icosapent Ethyl (Vascepa) 1 Gram Capsule, 2 GM PO BID, CAP 01/28/23 Sitagliptin Phosphate (Januvia) 50 Mg Tablet, 50 MG PO DAILY, TAB 01/28/23 Vit B Cmplx 3/FA/Vit C/Biotin ([place] [facility] Tablet) 1 Each Tablet, 1 EACH PO DAILY, TAB 01/28/23 Tamsulosin HCl (Flomax) 0.4 Mg Cap.er.24h, 0.4 MG PO DAILY, CAPSULE.DR 01/28/23 Rivaroxaban (Xarelto) 2.5 Mg Tablet, 2.5 MG PO BID, TAB 01/28/23 Glimepiride (Glimepiride) 4 Mg Tablet, 4 MG PO BID PRN for BLOOD GLUCOSE >150, TAB 01/28/23 Atorvastatin Calcium (Atorvastatin Calcium) 40 Mg Tablet, 40 MG PO HS, TAB 01/28/23 Past Medical History Past Medical History: Diabetes-Type II, High Cholesterol, Hypertension Additional Past Medical Hx: COLON CA, CKD Surgical History: None Surgical History Other: HERNIA REPAIR, bowel resection Social History: Smokers, Negative, Lives with family RN Note Reviewed/Agreed w/PFSH: Yes Review of System Dictation CONSTITUTIONAL: NEGATIVE EXCEPT FOR HPI HEAD/FACE: NEGATIVE EXCEPT FOR HPI EENT: NEGATIVE EXCEPT FOR HPI RESPIRATORY: NEGATIVE EXCEPT FOR HPI GASTROINTESTINAL/ABDOMINAL: NEGATIVE EXCEPT FOR HPI LEFT FLANK PAIN THAT RADIATES TO LEFT LOWER QUADRANT GENITOURINARY: NEGATIVE EXCEPT FOR HPI MUSCULOSKELETAL: NEGATIVE EXCEPT FOR HPI INTEGUMENTARY: NEGATIVE EXCEPT FOR HPI NEUROLOGICAL/PSYCH: NEGATIVE EXCEPT FOR HPI HEMATOLOGIC/LYMPHATIC: NEGATIVE EXCEPT FOR HPI ALL SYSTEMS NEGATIVE, EXCEPT NOTED ABOVE. 13 POINT REVIEW OF SYSTEMS ASSESSED AND ALL NEGATIVE EXCEPT FOR ABOVE. Initial Vital Sign VS Vital Signs Date Time Temp Pulse Resp B/P (MAP) Pulse Ox O2 Delivery O2 Flow Rate FiO2 09/17/25 20:49 97.0 87 20 167/84 96 Room Air 09/18/25 00:57 0 21 Physical Exam Dictation VITAL SIGNS REVIEWED GENERAL APPEARANCE: ALERT, ORIENTED X 3, MODERATE ACUTE DISTRESS, WELL DEVELOPED, NOURISHED. HEAD AND FACE: NON-TRAUMATIC. EYES: PERRL, PINK CONJUNCTIVAS, EYELID NO TRAUMA, ANTERIOR CHAMBER WITH ARCUS SENILIS. EARS: PINNAS INTACT AND NO SIGNS OF TRAUMA OR ERYTHEMA EAR CANALS CLEAR AND NO DISCHARGE TM NO ERYTHEMA NOSE: NO DISCHARGE, NO BLEEDING. OROPHARYNX: MOUTH NORMAL, TONGUE PINK, PHARYNX CLEAR,NO ERYTHEMA, TONSILS NO EXUDATES, NO ABSCESSES NOTED, MUCOUS MEMBRANE MOIST NECK: SUPPLE, NON-TENDER, NO THYROMEGALY, NO MASSES, NO JVD, NO BRUITS BREAST:DEFERRED CHEST:NO TENDERNESS, NO CREPITUS, NO PARADOXICAL MOVEMENT, NO RETRACTIONS LUNGS:CLEAR, WELL-VENTILATED, SYMMETRIC, NO RALES, NO WHEEZING, NO RHONCHI, NO STRIDOR, GOOD BREATH SOUNDS BILATERALLY HEART: REGULAR RATE, REGULAR RHYTHM, NO MURMUR, NO GALLOPS VASCULAR: NO PERIPHERAL EDEMA, ABDOMEN: SOFT, POSITIVE BOWEL SOUNDS, NONDISTENDED, NO GUARDING, NONTENDER, NO REBOUND, NO MASSES NO HEPATOMEGALY, NO SPLENOMEGALY, NO SUTTON'S SIGN, NO HERNIAS. NEGATIVE CVAT BILATERALLY RECTAL: DEFERRED GENITAL: DEFERRED NEUROLOGICAL: NORMAL SPEECH, MOTOR FUNCTION INTACT, SENSORY FUNCTION INTACT MUSCULOSKELETAL: NECK NONTENDER, FULL RANGE OF MOTION, BACK NONTENDER, FULL RANGE OF MOTION, EXTREMITIES: NONTENDER, FULL RANGE OF MOTION SKIN: COLOR PINK, DRY, NO TURGOR, NO RASH, NO LACERATIONS, NO ABRASIONS, NO CONTUSIONS. LYMPHATIC: DEFERRED Results (Laboratory/Radiology) Laboratory/Radiology Laboratory Tests Test 09/17/25 21:18 09/17/25 23:25 White Blood Count 11.4 K/uL (4.8-10.8) H Red Blood Count 4.24 MIL/uL (4.50-6.20) L Hemoglobin 13.4 g/dL (14.0-18.0) L Hematocrit 39.5 % (42-54) L Mean Corpuscular Volume 93.2 fL (79-99) Mean Corpuscular Hemoglobin 31.6 pg (27.0-33.0) Mean Corpuscular Hemoglobin Concent 33.9 g/dL (32.0-36.0) Red Cell Distribution Width 13.2 % (11.0-15.5) Platelet Count 219 K/uL (130-400) Mean Platelet Volume 9.0 fL (7.5-10.5) Immature Granulocyte % (Auto) 0.5 % (0-1) Neutrophils (%) (Auto) 78.1 % (40.0-77.0) H Lymphocytes (%) (Auto) 11.3 % (21.0-51.0) L Monocytes (%) (Auto) 6.8 % (3.0-13.0) Eosinophils (%) (Auto) 3.0 % (0.0-8.0) Basophils (%) (Auto) 0.3 % (0.0-5.0) Neutrophils # (Auto) 8.9 K/uL (1.8-7.7) H Lymphocytes # (Auto) 1.3 K/uL (1.0-4.8) Monocytes # (Auto) 0.8 K/uL (0.1-1.0) Eosinophils # (Auto) 0.34 K/uL (0.00-0.70) Basophils # (Auto) 0.03 K/uL (0.00-0.20) Absolute Immature Granulocyte (auto 0.06 K/uL (0-1) Nucleated Red Blood Cells 0.0 % (0.0-0.19) Sodium Level 140 mmol/L (136-145) Potassium Level 5.2 mmol/L (3.5-5.1) H Chloride Level 105 mmol/L (101-111) Carbon Dioxide Level 27 mmol/L (21-32) Blood Urea Nitrogen 22 mg/dL (7-18) H Creatinine 1.7 mg/dL (0.5-1.3) H Glomerular Filtration Rate Calc 39 mL/min (>90) Random Glucose 142 mg/dL (70-105) H Total Calcium 8.8 mg/dL (8.5-10.1) Lipase 32 U/L (16-77) Urine Color LIGHT-YELLOW (YELLOW) Urine Appearance CLEAR (CLEAR) Urine pH 5.5 (5.0-8.0) Urine Specific [place] 1.015 (1.001-1.031) Urine Protein 10 mg/dL (NEGATIVE) H Urine Glucose (UA) NEGATIVE mg/dL (NEGATIVE) Urine Ketones NEGATIVE mg/dL (NEGATIVE) Urine Occult Blood NEGATIVE (NEGATIVE) Urine Nitrate NEGATIVE (NEGATIVE) Urine Bilirubin NEGATIVE mg/dL (NEGATIVE) Urine Urobilinogen 0.2 mg/dL (0.2-1.0) Urine Leukocyte Esterase NEGATIVE [place]/uL Urine RBC 2-5 /HPF (0-1) H Urine WBC 2-5 /HPF (0-1) H Urine Bacteria RARE /HPF (None Seen) Labs Reviewed?: Yes ED Course ED Course Orders Procedure Category Date Status Time Cbc With Differential LAB 09/17/25 Complete 20:59 Urinalysis Profile LAB 09/17/25 Complete 20:59 0.9%Nacl 1000ml (Ns PHA 09/17/25 Complete 1000ml) 21:00 Ketorolac PHA 09/17/25 Complete Tromethamine 30mg/Ml 21:00 Ct Abdomen/Pelvis W/O CT 09/17/25 Resulted Contrast 20:59 Lipase LAB 09/17/25 Complete 20:59 Basic Metabolic Panel LAB 09/17/25 Complete 20:59 Morphine 2mg Syg PHA 09/17/25 Complete (Morphine 2mg Syg) 21:30 Ondansetron 4mg Inj PHA 09/17/25 Complete (Zofran 4mg Inj) 21:30 Current Medications Medications (Trade) Dose Ordered Sig/Esthela Route PRN Reason Start Time Stop Time Status Last Admin Dose Admin Ketorolac Tromethamine (toRADol) 30 mg ONCE ONCE IVP 09/17/25 21:00 09/17/25 21:14 DC 09/17/25 21:00 Morphine Sulfate (morPHINE 2MG SYG) 2 mg ONCE ONCE IVP 09/17/25 21:30 09/17/25 21:31 DC 09/17/25 21:33 Ondansetron HCl (zoFRAN 4MG INJ) 4 mg ONCE ONCE IVP 09/17/25 21:30 09/17/25 21:31 DC 09/17/25 21:33 Sodium Chloride 1,000 ml @ 0 mls/hr ONCE ONCE IV 09/17/25 21:00 09/17/25 21:02 DC 09/17/25 21:20 Vital Signs Date Time Temp Pulse Resp B/P (MAP) Pulse Ox O2 Delivery O2 Flow Rate FiO2 09/18/25 00:57 98.1 85 18 158/81 97 Room Air* 0 21 09/17/25 20:49 97.0 87 20 167/84 96 Room Air Medical Decision Making MDM The patient is an 85-year-old male with a history of colon cancer, CKD who presents to the emergency department with complaints three weeks left flank pain. Patient denies any trauma. Denies any other associated symptoms. Patient reports he was evaluated by his primary doctor who diagnosed him with constipation and gave him some medications for that. Patient denies any fevers, nausea or vomiting, diarrhea. CBC showed mild leukocytosis, mild normocytic anemia, chemistry showed creatinine of 1.7 Which is submitted from previous visits. With a 5.2, negative lipase, urinalysis negative for leukocyte esterase and nitrites. CT abdomen and pelvis showed no acute intra-abdominal pathology. Mild prostatomegaly. Tiny nonobstructing left renal calculi. Patient reports feeling better in reports no longer having any pain. Patient will be discharged to follow up with PCP. Differential diagnosis: Kidney stones, pyelonephritis, electrolyte imbalance, dehydration Need for hospitalization: Patient does not meet criteria for hospitalization. There are no social concerns with this patient. DX & DISP Disposition: Discharge Departure Impression: Primary Impression: Left flank pain Additional Impressions: Left renal stone, CKD (chronic kidney disease) Condition: Stable Additional Instructions: Your CT scan showed small kidney stone on your left kidney. They are not causing any obstruction. And they are very small. Your labs were unremarkable except your kidney which you has a history of CKD. Please follow up with the primary doctor in 1-2 days. If anything worsens please return to ER. FOLLOW-UP WITH PRIMARY CARE PROVIDER IN 1 TO 2 DAYS. TAKE MEDICATIONS DIRECTED HERE IN THE EMERGENCY ROOM. OKAY TO CONTINUE HOME MEDICATIONS UNLESS OTHERWISE DISCUSSED DURING YOUR VISIT IN THE EMERGENCY ROOM TODAY. RETURN TO YOUR NEAREST EMERGENCY ROOM IF SYMPTOMS WORSEN OR IF THERE IS NO IMPROVEMENT. CALL 911 IF YOU NEED IMMEDIATE ASSISTANCE. TAKE TYLENOL [id number] NEEDED AND IF NO CONTRAINDICATIONS ARE PRESENT. INCREASE ORAL HYDRATION. A WOUND CULTURE OR URINE CULTURE WAS ORDERED HERE IN THE EMERGENCY ROOM DEPARTMENT PLEASE FOLLOW-UP WITH PRIMARY CARE PROVIDER AND ADVISE THEM TO GET REPEAT PORTS FROM OUR FACILITY. IF YOU HAD ANY LATRELL WRAP/SPLINTS THAT WERE APPLIED HERE, PLEASE DO NOT REMOVE THEM UNTIL YOU SEE YOUR PRIMARY CARE OR SPECIALTY. Referrals: MADISON SANTACRUZ MD (PCP) DANYELL ANDERSEN MD Time of Disposition: 00:14 I have reviewed the case, and I agree with, Diagnosis and Plan HA MCCORD [facility] Sep 17, 2025 21:03 SHABNAM PERLA Sep 18, 2025 00:11 YNES PECK DO Sep 18, 2025 01:41
[2025-09-17] MEDS: 0.9%NACL 1000ML 1,000 ML IV ONE (21:20)
[2025-09-17 21:31] LABS: IMMATURE GRANULOCYTE ABSOLUTE 0.06 K/uL (0-1); NUCLEATED RED BLOOD CELLS 0.0 % (0.0-0.19); PLATELET COUNT (AUTO) 219 K/uL (130-400); RED BLOOD CELL COUNT(AUTO) 4.24 MIL/uL (4.50-6.20); RED CELL DISTRIBUTION WIDTH 13.2 % (11.0-15.5); WHITE BLOOD COUNT (AUTO) 11.4 K/uL (4.8-10.8)
[2025-09-17 22:05] LABS: CREATININE 1.7 mg/dL (0.5-1.3); GLOMERULAR FILTR. RATE CALC 39.0 mL/min (>90); GLUCOSE,RANDOM 142.0 mg/dL (70-105); SODIUM SERUM 140.0 mmol/L (136-145); UREA NITROGEN, BLOOD 22.0 mg/dL (7-18)
--- NOTE | 2025-09-17 22:30 | HMCIMG ---
EXAM: CT Abdomen and Pelvis Without IV contrast CLINICAL HISTORY: Left flank pain that radiates to the left lower quadrant. TECHNIQUE: Axial computed tomography images of the abdomen and pelvis without intravenous contrast. CONTRAST: No IV contrast. COMPARISON: Prior CT abdomen and pelvis dated December 05, 2024. FINDINGS: LUNG BASES: The lung bases appear clear. No pleural effusions are seen. LIVER: The liver demonstrates a nodular contour concerning cirrhosis. GALLBLADDER AND BILE DUCTS: The gallbladder appears within normal limits. No radioopaque gallstones are seen. No biliary ductal dilatation is evident. PANCREAS: Unremarkable. SPLEEN: Unremarkable. ADRENAL GLANDS: Unremarkable. KIDNEYS, URETERS, AND BLADDER: The kidneys appear within normal limits. There is bilateral minimal non-specific perinephric fat stranding. There is a right renal cyst in the upper pole measuring approximately 3.5 x 2.7 cm. There are two non-obstructive renal calculi in the left kidney, the largest measuring 0.2 cm in the upper calyx. No other renal or ureteric calculi are seen. There is no hydronephrosis or hydroureter. STOMACH AND BOWEL: Unremarkable appearance of the stomach and bowel. No evidence of bowel obstruction. No evidence suggesting enteritis or colitis. APPENDIX: No evidence of acute appendicitis on CT examination. There is an anterior abdominal wall repair. PERITONEUM: No free fluid. No free air. LYMPH NODES: No lymphadenopathy is evident. REPRODUCTIVE: Mild prostatomegaly. VASCULATURE: Atheromatous calcifications in the aorta without evidence of aneurysm. BONES: Multilevel moderate degenerative changes in the spine. No aggressive appearing osseous lesion. No acute osseous pathology evident. IMPRESSION: No acute intra-abdominal or pelvic process. Nodular hepatic contour concerning for cirrhosis. Mild diffuse urinary bladder wall thickening, concerning mild cystitis. Mild prostatomegaly. Right renal cortical cyst. Tiny nonobstructive left renal calculi. No significant interval change. /[place]
[2025-09-17 23:54] LABS: APPEARANCE,URINE CLEAR (CLEAR); GLUCOSE, URINE (UA) NEGATIVE (NEGATIVE); LEUKOCYTE ESTERASE ,URINE NEGATIVE Leu/uL (NEGATIVE); NITRATE,URINE NEGATIVE (NEGATIVE); OCCULT BLOOD,URINE NEGATIVE (NEGATIVE)
[2025-09-17 23:58] LABS: ADD UA MICROSCOPIC NO
[2025-09-18 00:57] VITALS: BP 158/81; PULSE 85; RESP 18; TEMP 98; O2SAT 97
== END 2025-09-18 00:58 | disposition home or self-care (01) ==
LOC: EDH 20:48
DX: N20.0 Calculus of kidney (principal); R10.A2 Flank pain, left side; E11.22 Type 2 diabetes mellitus with diabetic chronic kidney disease; I12.9 Hypertensive chronic kidney disease with stage 1 through stage 4 chronic kidney disease, or unspecified chronic kidney disease; N18.9 Chronic kidney disease, unspecified; E78.00 Pure hypercholesterolemia, unspecified; F17.200 Nicotine dependence, unspecified, uncomplicated; Z79.01 Long term (current) use of anticoagulants; Z79.84 Long term (current) use of oral hypoglycemic drugs; Z85.038 Personal history of other malignant neoplasm of large intestine; Z98.890 Other specified postprocedural states
CPT/HCPCS: 99285; 74176; 96374; 96375; 80048; 83690; 85025; 81003; 36415; J1885; J2270; J7030 ×2; J2405